=== PATIENT | female | born 1950 | race Caucasian/White ===

== ENCOUNTER → 2016-03-24 | Outpatient (CLI) | payer BC ==
[~2016-03-24] MED LIST: ACHYD1T PO; CIPR500T78 PO; NITR-33 PO; ONDA-42 SL; OXYC-12 PO; SULF1TAB38 PO
--- NOTE | 2016-03-24 15:13 | Diagnostic Imaging Report ---
Digital mammogram bilateral screening INDICATION: Screening. This study was compared to the prior exams of 01/04/2015, 05/23/2013, 12/08/2012, and 04/26/2012. At this time, there are no current complaints. The current study was also evaluated with a Computer Aided Detection (CAD) system. FINDINGS: There are scattered fibroglandular densities in both breasts which could obscure a lesion. Overall, there does not appear to have been any significant change when compared to the prior exam. No primary or secondary sign of malignancy is noted. IMPRESSION: There is no radiographic evidence for malignancy. ACR BI-RADS Category 1: Negative. Result letter will be mailed to the patient. Note: At least 10% of breast cancer is not imaged by mammography. Dictated by: Dictated on workstation # [id number]
== END ==
LOC: RAD 08:34
PROVIDERS: ATTEND Family Medicine
DX: Z12.31 Encounter for screening mammogram for malignant neoplasm of breast (principal)

== ENCOUNTER → 2016-04-30 | Outpatient (CLI) | payer BC ==
--- OUTSIDE RECORDS SUMMARY | 2016-04-30 16:58 | XMS REPORT | Continuity of Care Document ---
Author Author [facility] Organization [facility] Address Unknown Phone Unavailable Allergies Active Description Code Type Severity Reaction Onset Reported/Identified Relationship to Patient Clinical Status Yes No Known Drug Allergies [id number] Drug Allergy Unknown N/ A 03/29/2015 Medications Problems Date Dx Coded Attending Type Code Diagnosis Diagnosed By 01/22/2010 Ot 914.4 01/22/2010 Ot E000.8 01/22/2010 Ot E029.9 01/22/2010 Ot E849.0 01/22/2010 Ot E906.4 01/14/2011 Ot 719.41 JOINT PAIN-SHLDER 01/14/2011 Ot V57.1 PHYSICAL THERAPY NEC 01/14/2011 Ot V58.49 OTHER SPECIFIED AFTERCARE FOLLOWING SURG 01/16/2011 Ot 719.41 JOINT PAIN-SHLDER 01/16/2011 Ot V57.1 PHYSICAL THERAPY NEC 01/16/2011 Ot V58.49 OTHER SPECIFIED AFTERCARE FOLLOWING SURG 05/02/2013 SELWYN GUERRA, JASON Laboy Ot 592.1 CALCULUS OF URETER 05/02/2013 SELWYN GUERRA, JASON Laboy Ot 789.09 ABDOMINAL PAIN, OTHER SPECIFIED SITE 06/01/2014 Ot 592.9 11/29/2014 ANDREW GUERRA, APOLINAR Montero Ot 592.1 01/16/2015 ANGELA WESTBROOK MD Ot R92.8 03/29/2015 TOI GUERRA, RAMÓN Rangel Ot D12.5 BENIGN NEOPLASM OF SIGMOID COLON 03/29/2015 RAMÓN CM MD Ot K57.30 DVRTCLOS OF LG INT W/O PERFORATION OR AB 03/29/2015 TOI GUERRA, RAMÓN Rangel Ot Z12.11 ENCOUNTER FOR SCREENING FOR MALIGNANT NE 05/06/2015 Ot V76.12 05/06/2015 Ot 793.89 05/06/2015 Ot V76.12 05/06/2015 Ot 611.72 05/06/2015 ANGELA WESTBROOK MD Ot V67.9 05/06/2015 PIETRO GUERRA, ANGELA Locke Ot V76.12 05/06/2015 ANDREW GUERRA, APOLINAR Montero Ot 592.1 05/06/2015 ANDREW GUERRA, APOLINAR A Ot 592.1 05/06/2015 ANDREW GUERRA, APOLINAR Montero Ot V72.84 05/06/2015 ANDREW GUERRA, APOLINAR A Ot 592.0 05/06/2015 ANDREW GUERRA, APOLINAR A Ot 592.1 05/06/2015 ANDREW GUERRA, APOLINAR A Ot 592.9 05/06/2015 PIETRO GUERRA, ANGELA Locke Ot 610.0 05/06/2015 Ot 592.9 05/06/2015 PIETRO GUERRA, ANGELA Locke Ot R92.8 05/06/2015 PIETRO GUERRA, ANGELA Locke Ot R92.8 05/06/2015 TOI GUERRA, RAMÓN Rangel Ot Z01.818 05/06/2015 TOI GUERRA, RAMÓN Rangel Ot Z12.11 05/27/2015 ANDREW GUERRA, APOLINAR Montero Ot N20.0 03/24/2016 Ot 793.89 OTH (ABN) FINDINGS ON RADIOLOGICAL EXAMI 03/24/2016 Ot V76.12 OTH SCREEN MAMMO-MALIGN NEOPLASM OF CAITLYN 03/24/2016 Ot 611.72 LUMP OR MASS IN BREAST 03/24/2016 PIETRO GUERRA, ANGELA Locke Ot V67.9 FOLLOW-UP EXAM NOS 03/24/2016 PIETRO GUERRA, ANGELA Locke Ot V76.12 OTH SCREEN MAMMO-MALIGN NEOPLASM OF CAITLYN 03/24/2016 APOLINAR MORALES MD Ot 592.1 CALCULUS OF URETER 03/24/2016 APOLINAR MORALES MD Ot 592.1 CALCULUS OF URETER 03/24/2016 ANDREW GUERRA, APOLINAR Montero Ot V72.84 EXAM PRE-OPERATIVE NOS 03/24/2016 APOLINAR MORALES MD Ot 592.0 CALCULUS OF KIDNEY 03/24/2016 APOLINAR MORALES MD Ot 592.1 CALCULUS OF URETER 03/24/2016 ANDREW GUERRA, APOLINAR Montero Ot 592.9 URINARY CALCULUS NOS 03/24/2016 ANGELA WESTBROOK MD Ot 610.0 SOLITARY CYST OF BREAST 03/24/2016 Ot 592.9 URINARY CALCULUS NOS 03/24/2016 ANGELA WESTBROOK MD Ot R92.8 OTH ABN AND INCONCLUSIVE FINDINGS ON DX 03/24/2016 ANGELA WESTBROOK MD Ot R92.8 OTH ABN AND INCONCLUSIVE FINDINGS ON DX 03/24/2016 RAMÓN CM MD Ot Z01.818 ENCOUNTER FOR OTHER PREPROCEDURAL EXAMIN 03/24/2016 RAMÓN CM MD Ot Z12.11 ENCOUNTER FOR SCREENING FOR MALIGNANT NE 03/24/2016 APOLINAR MORALES MD Ot N20.0 CALCULUS OF KIDNEY 03/25/2016 TRISH HUSAIN MD Ot Z12.31 ENCNTR SCREEN MAMMOGRAM FOR MALIGNANT NE 03/30/2016 TRISH HUSAIN MD Ot Z12.31 ENCNTR SCREEN MAMMOGRAM FOR MALIGNANT NE 04/02/2016 TRISH HUSAIN MD Ot Z12.31 ENCNTR SCREEN MAMMOGRAM FOR MALIGNANT NE Procedures Results Encounters ACCT No. Visit Date/Time Discharge Status Pt. Type Provider Facility Loc./Unit Complaint [id number] 03/29/2015 08:20:00 2015 11:40:00 DIS Outpatient RAMÓN CM MD [facility] SDC SCREENING [id number] 03/28/2015 08:00:00 2015 08:00:00 CAN Outpatient RAMÓN CM MD [facility] PREOP SCREENING [id number] 01/04/2015 07:46:00 2014 23:59:59 CLS Outpatient ANGELA WESTBROOK MD [facility] RAD SIX MONTH FOLLOW UP [id number] 12/31/2014 08:02:00 2014 23:59:59 CLS Outpatient ANGELA WESTBROOK MD [facility] RAD 6 MONTH FOLLOW UP [id number] 11/27/2013 09:09:00 2013 23:59:59 CLS Outpatient ANGELA WESTBROOK MD [facility] RAD CYSTIC LEISON [id number] 11/10/2013 09:13:00 2013 23:59:59 CLS Outpatient APOLINAR MORALES MD [facility] RAD STONES [id number] 05/23/2013 12:39:00 2013 23:59:59 CLS Outpatient ANGELA WESTBROOK MD [facility] RAD 6 MONTH FOLLOW UP [id number] 05/10/2013 15:20:00 2013 23:59:59 CLS Outpatient APOLINAR MORALES MD [facility] RAD RT STONE [id number] 05/03/2013 09:06:00 2013 23:59:59 CLS Outpatient APOLINAR MORALES MD [facility] SDC RIGHT STONE [id number] 05/02/2013 16:19:00 2013 23:59:59 CLS Outpatient APOLINAR MORALES MD [facility] PREOP RT STONE [id number] 05/02/2013 00:37:00 2013 04:06:00 DIS Emergency JASON SAMANO MD [facility] ER R SIDE ABD PAIN [id number] 12/08/2012 14:02:00 2012 23:59:59 CLS Outpatient ANGELA WESTBROOK MD [facility] RAD FOLLOW UP [id number] 03/24/2016 08:34:00 ACT Outpatient TRISH HUSAIN MD [facility] RAD SCREENING [id number] 05/06/2015 10:59:00 ACT Outpatient APOLINAR MORALES MD [facility] RAD RENAL STONES [id number] 06/01/2014 16:36:00 Document Registration [id number] 05/06/2012 08:07:00 Document Registration [id number] 04/26/2012 13:03:00 Document Registration [id number] 01/16/2011 08:10:00 Document Registration [id number] 01/14/2011 07:58:00 Document Registration [id number] 09/19/2010 12:59:00 Document Registration [id number] 01/22/2010 23:15:00 Document Registration
--- NOTE | 2016-04-30 18:31 | Diagnostic Imaging Report ---
INDICATION: 65-year-old female with history of renal calculi. COMPARISONS: 05/06/2015. FINDINGS: Lung bases are clear. There is surgical absence of the gallbladder. The bowel gas pattern is nonspecific and nonobstructive. The bony structures are grossly unremarkable. The renal contours are poorly delineated but no discrete renal calculi suggested. IMPRESSION: Previously demonstrated punctate calcification in the right abdomen is not visualized on this film with no discrete renal calculi identified by plain radiographic criteria. If warranted a nonenhanced CT may be of further value. Dictated by: Dictated on workstation # [id number]
== END ==
LOC: RAD 16:54
PROVIDERS: ATTEND Urology
DX: N20.0 Calculus of kidney (principal); Z87.442 Personal history of urinary calculi
CPT/HCPCS: 74000

== ENCOUNTER → 2016-08-11 | Outpatient (CLI) | payer BC ==
[~2016-08-11] VITALS: Ht 170.2 cm; Wt 90.7 kg
[~2016-08-11] MED LIST changes: +CATHETER FLUSH 10 ML SYR IV PRN; +GADOBUTROL 7.5 MMOL/7.5 ML (GADAVIST) VIAL IV ONE; +IOHEXOL 300 MG/ML 50 ML (OMNIPAQUE 300) VIAL IV ONE
[2016-08-11 13:03] VITALS: BP 124/80
[2016-08-11 13:27] VITALS: BP 128/78
--- NOTE | 2016-08-11 17:36 | Diagnostic Imaging Report ---
EXAMINATION: Fluoroscopic guided joint injection/arthrogram- right wrist. INDICATION: Right wrist pain, request for MR arthrogram of the shoulder is submitted. Fluoroscopy time: 46 seconds CONSENT: Informed consent was obtained from the patient. The risks, benefits, potential complications and alternatives were reviewed and all questions answered to the patient's satisfaction. PROCEDURE: After sterile preparation and draping, 1% lidocaine was utilized for local anesthesia. A 25-gauge butterfly needle is introduced into the radial- scaphoid joint under fluoroscopic guidance. After confirmation of proper positioning with intra-articular injection of, 4 ml of 1:150 concentration of Gadavist in normal saline is injected the into the joint. The patient tolerated the procedure well with no immediate complications. FINDINGS: Arthrogram demonstrates Normal distribution of contrast in the radiocarpal joint with no filling of the distal radioulnar joint or the mid carpal compartment. IMPRESSION: Successful fluoroscopic guided injection of diluted gadolinium into the right wrist. MR arthrogram to follow. Dictated by: Dictated on workstation # [id number]
--- NOTE | 2016-08-12 12:09 | Diagnostic Imaging Report ---
EXAMINATION: Magnetic resonance imaging of the right wrist with intra-articular contrast DATE: August 11, 2016. COMPARISON: Right wrist arthrogram August 11, 2016. HISTORY: 65-year-old female, injury in April 2016 lifting object. Right wrist pain. TECHNIQUE: Magnetic Resonance Imaging sequences were performed of the wrist following the intra-articular administration of contrast. FINDINGS: TRIANGULAR FIBROCARTILAGE COMPLEX: The triangular fibrocartilage complex is grossly intact. There is no abnormal contrast extension into the distal radioulnar joint. INTRINSIC LIGAMENTS: There is abnormal extension of contrast into the mid carpal compartment. There is no identified tear of the lunotriquetral ligament. The scapholunate ligament is irregular in appearance, particularly in its central membranous portion. This most likely relates to a tear of the scapholunate ligament. The dorsal and volar bands of the scapholunate ligament are not particularly well seen. JOINTS: There is abnormal contrast extension into the mid carpal compartment. There are mild degenerative changes at the first carpometacarpal joint. CARPAL TUNNEL: The flexor retinaculum is unremarkable. The flexor digitorum superficialis and profundus are intact. The median nerve is unremarkable. FLEXOR TENDONS: The flexor carpi ulnaris, flexor pollicis longus and carpi radialis are intact. EXTENSOR TENDONS: The extensor carpi ulnaris tendon appears bifid or contains an interstitial split tear. There is no abnormal fluid in the extensor carpi ulnaris tendon sheath. There is no abnormal thickening or increased signal of the extensor carpi ulnaris tendon. The additional extensor tendons are intact. BONE: There is no acute fracture, bone contusion, or evidence of osteonecrosis. There are mild cystic changes in the scaphoid and capitate. BURSAE AND SOFT TISSUES: The bursae and soft tissues surrounding the wrist are within normal limits. IMPRESSION: 1. Tear of at least the central membranous portion of the scapholunate ligament. 2. Intact lunotriquetral ligament. 3. Grossly intact triangular fibrocartilage complex. 4. Bifid extensor carpi ulnaris tendon versus interstitial split tear of the tendon. No extensor carpi ulnaris tendinopathy or tenosynovitis. 5. No acute fracture, bone contusion, or evidence of osteonecrosis. Dictated by: Dictated on workstation # [id number]
== END ==
LOC: RAD 12:51
PROVIDERS: ATTEND Orthopaedic Surgery
DX: S63.8X1A Sprain of other part of right wrist and hand, initial encounter (principal); X50.0XXA Overexertion from strenuous movement or load, initial encounter
CPT/HCPCS: 25246; 73115; 73222

== ENCOUNTER 2016-11-24 10:44 | Outpatient (RCR) | payer BC ==
[~2016-11-24 10:44] MED LIST changes: -CATHETER FLUSH 10 ML SYR IV PRN; -GADOBUTROL 7.5 MMOL/7.5 ML (GADAVIST) VIAL IV ONE; -IOHEXOL 300 MG/ML 50 ML (OMNIPAQUE 300) VIAL IV ONE
== END 2016-11-28 | disposition home or self-care (01) ==
PROVIDERS: ATTEND Orthopaedic Surgery
DX: S63.8X1D Sprain of other part of right wrist and hand, subsequent encounter (principal); X50.0XXD Overexertion from strenuous movement or load, subsequent encounter; Y99.8 Other external cause status

== ENCOUNTER → 2017-04-27 | Outpatient (CLI) | payer BC ==
--- NOTE | 2017-04-27 19:28 | Diagnostic Imaging Report ---
INDICATION: Routine screening. The current study was also evaluated with a Computer Aided Detection (CAD) system. Comparison is made with prior mammograms from 03/24/2016 and 01/04/2015. FINDINGS: Scattered fibroglandular densities are identified bilaterally. The parenchymal pattern is stable. Probable oil cyst in the retroareolar left breast is unchanged. There are benign calcifications. No dominant mass or malignant-appearing microcalcifications are identified. The axillae are unremarkable. IMPRESSION: No mammographic features suspicious for malignancy are identified. ACR BI-RADS Category 2: Benign findings. Result letter will be mailed to the patient. Note: At least 10% of breast cancer is not imaged by mammography. Dictated by: Dictated on workstation # [id number]
== END ==
LOC: RAD 07:55
PROVIDERS: ATTEND Family Medicine
DX: Z12.31 Encounter for screening mammogram for malignant neoplasm of breast (principal)
CPT/HCPCS: 77067

== ENCOUNTER → 2017-05-04 | Outpatient (CLI) | payer BC ==
--- NOTE | 2017-05-04 17:39 | Diagnostic Imaging Report ---
INDICATION: History of kidney stones. TIME OF EXAM: 5:23 PM Correlation is made with prior exam from 04/30/2016. FINDINGS: There are surgical clips in the right upper quadrant. Bowel gas pattern is nonobstructive. No definite radiopaque urinary tract calculi are seen. IMPRESSION: No definite radiopaque urinary tract calculi detected. Dictated by: Dictated on workstation # [id number]
== END ==
LOC: RAD 16:52
PROVIDERS: ATTEND Urology
DX: Z87.442 Personal history of urinary calculi (principal); Z98.890 Other specified postprocedural states
CPT/HCPCS: 74018

== ENCOUNTER → 2018-05-03 | Outpatient (CLI) | payer BC ==
--- NOTE | 2018-05-03 17:48 | Diagnostic Imaging Report ---
INDICATION: History of kidney stones. TIME OF EXAM 5:03 PM CORRELATION is made with prior abdominal radiographs from 05/04/2017. FINDINGS: Surgical clips in the right upper quadrant are noted from prior cholecystectomy. The bowel gas pattern is unremarkable. No definite radiopaque urinary tract calculi are seen. No acute features seen. IMPRESSION: Stable KUB. No definite radiopaque urinary tract calculi are identified. Dictated by: Dictated on workstation # [id number]
== END ==
LOC: RAD 16:55
PROVIDERS: ATTEND Urology
DX: Z87.442 Personal history of urinary calculi (principal); Z90.49 Acquired absence of other specified parts of digestive tract
CPT/HCPCS: 74018

== ENCOUNTER → 2018-07-22 | Outpatient (CLI) | payer BC ==
--- NOTE | 2018-07-22 17:43 | Diagnostic Imaging Report ---
INDICATION: Routine screening. COMPARISON: Comparison is made with prior mammograms from 04/27/2017 and 03/24/2016. TECHNIQUE: 2-D and 3-D bilateral screening mammography was performed with Computer Aided Detection (CAD) system. FINDINGS: Scattered fibroglandular densities are identified bilaterally. There are benign calcifications. Oil cyst retroareolar and medial left breast, asymmetric density in the central left breast on MLO view has been stable for several years. No new mass or malignant appearing microcalcifications are seen. Axillae are unremarkable. IMPRESSION: No mammographic features suspicious for malignancy are identified. ACR BI-RADS Category 2: Benign findings. Result letter will be mailed to the patient. Note: At least 10% of breast cancer is not imaged by mammography. Dictated by: Dictated on workstation # [id number]
== END ==
LOC: RAD 07:59
PROVIDERS: ATTEND Nurse Practitioner Family
DX: Z12.31 Encounter for screening mammogram for malignant neoplasm of breast (principal)
CPT/HCPCS: 77067

== ENCOUNTER → 2019-05-02 | Outpatient (CLI) | payer BC ==
--- NOTE | 2019-05-02 17:39 | Diagnostic Imaging Report ---
INDICATION: Evaluation of renal calculi. Supine image of the abdomen is obtained. Comparison is made to study of 05/03/2018. FINDINGS: There is mild amount of stool throughout the colon. This does obscure evaluation of the urinary tract; however, no definite pathologic calcification is seen. Degenerative findings are seen at the lumbosacral junction. There is no abnormal lytic lesion identified. Surgical clip is again seen in the region of gallbladder fossa. IMPRESSION: No acute abnormality or evidence of urinary tract calculus. Dictated by: Dictated on workstation # [id number]
== END ==
LOC: RAD 16:50
PROVIDERS: ATTEND Urology
DX: N20.0 Calculus of kidney (principal)
CPT/HCPCS: 74018

== ENCOUNTER → 2019-08-22 | Outpatient (CLI) | payer BC ==
--- NOTE | 2019-08-22 09:24 | Diagnostic Imaging Report ---
INDICATION: Routine screening. COMPARISON: 07/22/2018 and 04/27/2017. TECHNIQUE: 2D and 3D bilateral screening mammography was performed with CAD. FINDINGS: Both breasts remain heterogeneously dense, limiting the sensitivity of mammography. An oil cyst in the medial left breast is again noted. Parenchymal density in the central left breast is stable. No new mass or malignant appearing microcalcifications are seen. There are benign calcifications present. The axillae are unremarkable. IMPRESSION: No mammographic features suspicious for malignancy are identified. ACR BI-RADS Category 2: Benign findings. Result letter will be mailed to the patient. Note: At least 10% of breast cancer is not imaged by mammography. Dictated by: Dictated on workstation # [id number]
== END ==
LOC: RAD 08:04
PROVIDERS: ATTEND Nurse Practitioner Family
DX: Z12.31 Encounter for screening mammogram for malignant neoplasm of breast (principal)
CPT/HCPCS: 77063; 77067

== ENCOUNTER → 2020-05-07 | Outpatient (CLI) | payer BC ==
--- NOTE | 2020-05-07 17:30 | Diagnostic Imaging Report ---
INDICATION: Nephrolithiasis KUB 5:01 PM Gallbladder appears to be surgically absent. Bowel gas pattern is normal. There are no pathologic masses or calcifications. IMPRESSION: No acute abnormalities in the abdomen Dictated by: Dictated on workstation # [id number]
== END ==
LOC: RAD 16:49
PROVIDERS: ATTEND Urology
DX: N20.0 Calculus of kidney (principal)
CPT/HCPCS: 74018

== ENCOUNTER → 2020-09-13 | Outpatient (CLI) | payer BC ==
--- NOTE | 2020-09-13 11:30 | Diagnostic Imaging Report ---
INDICATION: Routine screening. Comparison is made with prior mammogram from 08/22/2019 and 07/22/2018. 2-D and 3-D bilateral screening mammography was performed with CAD. Scattered fibroglandular densities are identified bilaterally. Benign-appearing oil cyst medial left breast is again noted. No new mass or malignant appearing microcalcifications are seen. There are benign calcifications. Axillae are unremarkable. IMPRESSION: BI-RADS Category 2 No mammographic features suspicious for malignancy are identified. ACR BI-RADS Category 2: Benign findings. Result letter will be mailed to the patient. Note: At least 10% of breast cancer is not imaged by mammography. Dictated by: Dictated on workstation # [id number]
== END ==
LOC: RAD 08:00
PROVIDERS: ATTEND Nurse Practitioner Family
DX: Z12.31 Encounter for screening mammogram for malignant neoplasm of breast (principal)
CPT/HCPCS: 77063; 77067

== ENCOUNTER → 2021-05-13 | Outpatient (CLI) | payer BC ==
--- NOTE | 2021-05-13 19:55 | Diagnostic Imaging Report ---
Clinical indication: Patient with history of stones. EXAM: X-ray of the abdomen with multiple supine and upright views. COMPARISON: X-ray of the abdomen dated 05/07/2020. FINDINGS: There is a nonobstructed bowel gas pattern. There is no evidence of abdominal free air. Surgical clips are seen overlying the right upper quadrant which could be related to cholecystectomy changes. There are no focal calcifications overlying the expected regions/ pathways of both kidneys, ureters, and bladder regions. There are degenerative spurs involving the visualized portions of lower thoracic spine and lumbar spine. IMPRESSION: There is no radiographic evidence for acute abdominal/ pelvic process. There are no urinary tract stones seen on this exam. Dictated by: Dictated on workstation # [id number]
== END ==
LOC: RAD 16:57
PROVIDERS: ATTEND Urology
DX: Z87.442 Personal history of urinary calculi (principal)
CPT/HCPCS: 74018

== ENCOUNTER → 2021-09-26 | Outpatient (CLI) | payer BC ==
--- NOTE | 2021-09-26 15:27 | Diagnostic Imaging Report ---
INDICATION: Screening. At this time there is no current complaint. EXAMINATION: 3D bilateral screening mammogram with CAD. COMPARISON: This study was compared to the prior exams of 09/13/2020, 08/22/2019 and 07/22/2018. FINDINGS: There are scattered fibroglandular densities in both breasts which could obscure a lesion. Overall, there does not appear to have been any significant change. There is no primary or secondary sign of malignancy noted. The partially calcified mass in the left breast, seen previously, is again evident and no different. IMPRESSION: There is no evidence of malignancy. ACR BI-RADS Category 1: Negative. Result letter will be mailed to the patient. Note: At least 10% of breast cancer is not imaged by mammography. Dictated by: Dictated on workstation # [id number]
== END ==
LOC: RAD 07:56
PROVIDERS: ATTEND Nurse Practitioner Family
DX: Z12.31 Encounter for screening mammogram for malignant neoplasm of breast (principal)
CPT/HCPCS: 77063; 77067

== ENCOUNTER 2022-01-23 11:18 | Emergency (ER) | payer BC, MEDICARE ==
[~2022-01-23] VITALS: Ht 167.7 cm; Wt 90.7 kg
[2022-01-23 12:05] VITALS: BP 156/91
[2022-01-23] MEDS ORDERED: CEPH500T PO (13:34)
--- NOTE | 2022-01-23 13:35 | ED Lower Extremity ---
General Chief Complaint: Lower Extremity Stated Complaint: RT FOOT PAIN Nursing Triage Note: PT AMB TO TRIAGE W C/O RIGHT FOOT PAIN X3 DAYS. PT CONCERNED W DVT. A&OX4. Source: patient Exam Limitations: no limitations History of Present Illness Date Seen by Provider: Jan 23, 2022 Allergies and Home Medications Allergies Coded Allergies: No Known Drug Allergies (Verified , 03/29/15) Past Ycmzzxz-Odelmd-Wapbnf Hx Patient Social History Tobacco Use?: No Use of E-Cig and/or Vaping dev: No Substance use?: No Alcohol Use?: Yes Alcohol Frequency: Once in a while Immunizations Up To Date Influenza Vaccine Up-to-Date: Yes; Up-to-Date First/Initial COVID19 Vaccinat: 2020 Second COVID19 Vaccination Yinka: 2020 Third COVID19 Vaccination Date: 2021 COVID19 Vaccine Senior [employer] Ass[employer]st: [employer] Past Medical History Reproductive Disorders: No Sexually Transmitted Disease: No HIV/AIDS: No Adverse Reaction/Blood Tranf: No Physical Exam Vital Signs Vital Signs - First Documented 01/23/22 12:05 Temp 36.1 Pulse 80 Resp 20 B/P (MAP) 156/91 (112) Pulse Ox 98 O2 Delivery Room Air Capillary Refill : Less Than 3 Seconds Height, Weight, BMI Height: 5'7.00" Weight: 200lbs. 0.0oz. 90.761120zx; 32.00 BMI Method:Stated Progress/Results/Core Measures Results/Orders Vital Signs/I&O 01/23/22 12:05 Temp 36.1 Pulse 80 Resp 20 B/P (MAP) 156/91 (112) Pulse Ox 98 O2 Delivery Room Air Blood Pressure Mean: 112 Departure Impression Primary Impression: Cellulitis of right foot Disposition: 01 HOME, SELF-CARE Condition: Stable Departure-Patient Inst. Decision time for Depature: 13:32 Referrals: TRISH HUSAIN MD (PCP/Family) Primary Care Physician Patient Instructions: Cellulitis (Skin Infection), Adult ED Add. Discharge Instructions: Your pain and redness is most likely due to cellulitis (infection in the skin). Complete antibiotics as prescribed. You may use Tylenol (acetaminophen) up to 1000 mg every 6 hours as needed for pain. Add ibuprofen sparingly up to 400 mg every 6 hours as needed for more severe pain not controlled by Tylenol. Will try to elevate your foot to the level of your heart is much as possible u ntil symptoms resolve. If possible, draw a line around the border of redness to monitor progress. You should be noticing improvement within 48 hours of starting antibiotics. Return to the emergency room for worsening symptoms or if you develop additional symptoms such as fever. All discharge instructions reviewed with patient and/or family. Voiced understanding. Scripts Cephalexin (Cephalexin) 500 Mg Tablet 500 MG PO QID, #28 TAB Prov: JASON SAMANO MD 01/23/22 Copy Copies To 1: TRISH HUSAIN MD, JOSHUA T MD Jan 23, 2022 13:35
== END 2022-01-23 13:40 | disposition home or self-care (01) ==
LOC: EDUNIT# 11:18 → ER 11:20
DX: L03.115 Cellulitis of right lower limb (principal)
CPT/HCPCS: 99281

== ENCOUNTER → 2022-02-02 | Outpatient (CLI) | payer BC ==
[~2022-02-02] MED LIST changes: +CEPH500T PO
--- NOTE | 2022-02-02 19:00 | Diagnostic Imaging Report ---
INDICATION: Right foot pain and swelling AP, oblique, and lateral views of the right foot are obtained. No fracture or acute bony abnormality is seen. There is a prominent hallux valgus deformity with degenerative change of 1st MTP joint. There is diffuse degenerative change throughout the interphalangeal joints. There is plantar calcaneal spurring. There is degenerative change of the tarsometatarsal joints throughout. IMPRESSION: Extensive chronic changes in the right foot with prominent hallux valgus deformity. No acute fracture or destructive bony lesion. Dictated by: Dictated on workstation # [id number]
== END ==
LOC: RAD 11:19
PROVIDERS: ATTEND Family Medicine
DX: M79.671 Pain in right foot (principal); M79.89 Other specified soft tissue disorders
CPT/HCPCS: 73630

== ENCOUNTER → 2022-02-19 | Outpatient (CLI) | payer BC ==
--- NOTE | 2022-02-19 13:12 | Diagnostic Imaging Report ---
EXAM: US VENOUS LOWER EXT RT INDICATION: Right lower extremity pain. COMPARISON: None. TECHNIQUE: Duplex, verduzco-scale and color-flow imaging of the right lower extremity venous system was performed FINDINGS: The right common femoral vein, superficial femoral vein, profunda femoris, and popliteal veins are normal. These vessels show normal compressibility, color flow, and doppler augmentation. The deep calf veins demonstrate no distinct intraluminal thrombus where seen. IMPRESSION: No evidence of deep venous thrombosis in the right lower extremity. Dictated by: Dictated on workstation # [id number]
--- NOTE | 2022-02-19 13:14 | Diagnostic Imaging Report ---
Exam: Right lower extremity arterial Doppler ultrasound. Date: February 19, 2022. Indication: 71-year-old female, right lower extremity pain. Comparison: None. Findings: Peak systolic velocity in the right common femoral artery measures 95 cm/s. Peak systolic velocity in the right deep femoral artery measures 96 cm/s. Peak systolic velocity in the right proximal superficial femoral artery measures 93 cm/s, 88 cm/s in the mid right superficial femoral artery, and 65 cm/s distally. Peak systolic velocity in the right popliteal artery measures 53 cm/s. Peak systolic velocity in the distal right posterior tibial artery measures 64 cm/s and 20 cm/s in the dorsalis pedis. Impression: 1. Patent imaged right lower pulmonary arterial vasculature without elevated velocities. 2. Loss of normal triphasic waveforms distal to the right common femoral artery. Dictated by: Dictated on workstation # [id number]
== END ==
LOC: RAD 12:00
PROVIDERS: ATTEND Family Medicine
DX: M79.671 Pain in right foot (principal)
CPT/HCPCS: 93926

== ENCOUNTER 2022-07-14 19:21 | Emergency (ER) | payer BC ==
[~2022-07-14] VITALS: Ht 167.7 cm; Wt 91.0 kg
[2022-07-14] MEDS ORDERED: KETOROLAC 60 MG/2 ML VIAL IM ONE (20:00)
--- NOTE | 2022-07-14 20:01 | ED Lower Extremity ---
General Chief Complaint: Lower Extremity Stated Complaint: FOOT PAIN Nursing Triage Note: Pt presents with c/o R foot/heel pain that started last night. She reports pain has gotten worse throughout the day today. She's also noticed swelling and bruising to foot. Denies trauma. She reports R leg veins stripped several years ago. Source: patient Exam Limitations: no limitations History of Present Illness Date Seen by Provider: July 14, 2022 Time Seen by Provider: 19:40 Initial Comments 71-year-old female presents with complaints of right foot pain. She states that the pain started in her heel last night, now the pain extends to her entire foot. She reports her foot is now swollen and bruised. Describes the pain as a throbbing pain. Denies known injury. She reports that the pain has become worse over the day after walking on it. She states that resting in the morning the pain was not that bad. Reports that she feels as though her toes are numb, but during evaluation she states she has full sensation. She reports that she had similar issues last December. She was treated with several rounds of antibiotics for cellulitis, but it did not seem to improve the issue. Allergies and Home Medications Allergies Coded Allergies: No Known Drug Allergies (Verified , 03/29/15) Patient Home Medication List Home Medication List Reviewed: Yes Cephalexin (Cephalexin) 500 Mg Tablet, 500 MG PO QID Prescribed by: JASON GAY on 01/23/22 8764 Review of Systems Constitutional: no symptoms reported Musculoskeletal: other (Foot pain) Past Mmehazv-Fawimb-Uomnex Hx Patient Social History Tobacco Use?: No Smoking Status: Never a Smoker Use of E-Cig and/or Vaping dev: No Use of E-Cig and/or Vaping Jose: Never a User Substance use?: No Alcohol Use?: Yes Alcohol type: Wine Alcohol Frequency: Once in a while Pt feels they are or have been: No Immunizations Up To Date Influenza Vaccine Up-to-Date: Yes; Up-to-Date First/Initial COVID19 Vaccinat: 2020 Second COVID19 Vaccination Yinka: 2020 Third COVID19 Vaccination Date: 2021 Past Medical History Reproductive Disorders: No Sexually Transmitted Disease: No HIV/AIDS: No Adverse Reaction/Blood Tranf: No Physical Exam Vital Signs Vital Signs - First Documented 07/14/22 19:25 Temp 36.6 Pulse 76 Resp 16 B/P (MAP) 177/102 (127) Capillary Refill : Less Than 3 Seconds Height, Weight, BMI Height: 5'7.00" Weight: 200lbs. 0.0oz. [id number]; 32.00 BMI Method:Stated General Appearance: WD/WN, no apparent distress Neck: supple, normal inspection Cardiovascular: regular rate, rhythm Respiratory: lungs clear, normal breath sounds, no respiratory distress, no accessory muscle use Feet: left foot non-tender, left foot normal inspection, left foot normal range of motion, left foot no evidence of injury; right foot ecchymosis, right foot pain, right foot swelling Neurologic/Psychiatric: alert, normal mood/affect Skin: normal color, warm/dry Progress/Results/Core Measures Results/Orders My Orders Orders - OLU HERRERA APRN Foot, Right, 3 View (07/14/22 19:47) Ketorolac Injection (Toradol Injection) (07/14/22 20:00) Medications Given in ED Current Medications Medications Dose Ordered Sig/Hermelinda Route Start Time Stop Time Status Last Admin Dose Admin Ketorolac Tromethamine 30 mg ONCE ONCE IM 07/14/22 20:00 07/14/22 20:01 DC 07/14/22 20:08 30 MG Vital Signs/I&O 07/14/22 19:25 Temp 36.6 Pulse 76 Resp 16 B/P (MAP) 177/102 (127) Blood Pressure Mean: 127 Progress Progress Note : Progress Note Patient seen and evaluated, resting comfortably in bed, no acute distress. Based on exam and symptoms, x-ray of right foot ordered. Toradol ordered. Departure Impression Primary Impression: Foot pain Additional Impression: Cellulitis Disposition: HOME, SELF-CARE Condition: Stable Departure-Patient Inst. Decision time for Depature: 20:45 Referrals: TRISH HUSAIN MD (PCP/Family) Primary Care Physician Patient Instructions: Heel Pain Caused by Plantar Fasciitis Add. Discharge Instructions: You may take Tylenol or ibuprofen as needed for pain. Complete full course of antibiotic as directed. Follow-up with the barmaid. Return for worsening pain, worsening redness, fever, or any other new, concerning, or worsening symptoms. All discharge instructions reviewed with patient and/or family. Voiced understanding. Scripts Cephalexin (Cephalexin) 500 Mg Capsule 500 MG PO QID for 7 Days, #28 CAP 0 Refills Prov: OLU HERRERA APRN 07/14/22 OLU HERRERA APRN July 14, 2022 20:01
--- NOTE | 2022-07-14 20:19 | Diagnostic Imaging Report ---
CLINICAL HISTORY: Right foot pain. Swelling. COMPARISON: 02/02/2022. TECHNIQUE: 3 views of the right foot. FINDINGS: There is no acute fracture or dislocation of the right foot. Hallux valgus is noted. No suspicious focal osseous lesions. Bone spur seen along the plantar surface of the calcaneus. Soft tissue edema is noted in the right foot. IMPRESSION: 1. No acute fracture or dislocation in the right foot. 2. Stable degenerative changes in the right foot with prominent calcaneal spur along the plantar surface. 2. Generalized soft tissue edema in the right foot. Dictated by: Dictated on workstation # [id number]
[2022-07-14] MEDS ORDERED: CEPH500C PO (20:47)
[2022-07-14 20:59] VITALS: BP 152/80
== END 2022-07-14 21:00 | disposition home or self-care (01) ==
LOC: EDUNIT# 19:21 → ER 19:22
DX: L03.115 Cellulitis of right lower limb (principal)
CPT/HCPCS: 73630

== ENCOUNTER → 2022-09-29 | Outpatient (CLI) | payer BC ==
[~2022-09-29] MED LIST changes: +CEPH500C PO
--- NOTE | 2022-09-29 15:13 | Diagnostic Imaging Report ---
INDICATION: Routine screening. COMPARISON: 09/26/2021 and 09/13/2020. TECHNIQUE: 2D and 3D bilateral screening mammography was performed with CAD. FINDINGS: Scattered fibroglandular densities are identified bilaterally. Benign-appearing nodules in both breasts appear stable. No spiculated mass or malignant-appearing microcalcifications are seen. The axillae are unremarkable. IMPRESSION: No mammographic features suspicious for malignancy are identified. ACR BI-RADS Category 2: Benign findings. Result letter will be mailed to the patient. Note: At least 10% of breast cancer is not imaged by mammography. Dictated by: Dictated on workstation # [id number]
== END ==
LOC: RAD 07:36
PROVIDERS: ATTEND Family Medicine
DX: Z12.31 Encounter for screening mammogram for malignant neoplasm of breast (principal)
CPT/HCPCS: 77063; 77067

== ENCOUNTER → 2022-11-16 | Outpatient (CLI) | payer BC ==
[2022-11-16 17:22] VITALS: BP 153/82
--- NOTE | 2022-11-16 17:23 | Cardiology Stress Test Report ---
Stress Test Report Date of Procedure/Referring: Date of Procedure: Nov 16, 2022 PCP Trish Burns MD Admitting Physician Admitting Physician: Attending Physician: Doug Lobo MD Baseline Heart Rate: 67 Baseline Blood Pressure: Blood Pressure Systolic: 153 Blood Pressure Diastolic: 82 Baseline EKG: Baseline EKG: NSR Summary/Conclusion: Summary: In summary, the patient started exercising with a baseline heart rate, blood pressure and EKG mentioned above Patient was able to exercise for a total of 3.30 minutes on Antonio protocol, METs 5.2 Maximum heart rate 131 Maximum blood pressure 203/107 Stress EKG, Minimal nondiagnostic changes Recovery EKG , Return to baseline Conclusion: Fair exercise tolerance for 3 minutes and 30 seconds on standard Antonio protocol, 5.2 METS achieving 87% of maximal expected heart rate Appropriate heart rate response to exercise with hypertensive response to exercise with peak blood pressure 203/107 return to baseline during recovery Minimal nondiagnostic EKG changes with exercise return to baseline during recovery Copy Copies To 1: TRISH BURNS MD, BASHAR J MD Nov 16, 2022 17:22
== END ==
LOC: CARD 09:41
PROVIDERS: ATTEND Internal Medicine Cardiovascular Disease
DX: R07.9 Chest pain, unspecified (principal); R00.2 Palpitations
CPT/HCPCS: 93017